=== PATIENT | female | born 2000 | race Caucasian/White ===

== ENCOUNTER 2018-08-29 16:00 | Emergency (ER) | payer MEDICAID ==
[~2018-08-29] VITALS: Ht 160 cm; Wt 85.0 kg
[2018-08-29] MEDS ORDERED: KETOROLAC 15MG/ML VIAL IM ONE (19:30)
[2018-08-29 19:51] VITALS: BP 130/85
== END 2018-08-29 19:53 | disposition home or self-care (01) ==
LOC: ER 16:08
DX: J02.9 Acute pharyngitis, unspecified (principal); Z88.1 Allergy status to other antibiotic agents
CPT/HCPCS: 81025; 87070; 87077; 87430; 96372; 99283; J1885; Z7610

== ENCOUNTER 2018-12-01 12:49 | Emergency (ER) | payer MEDICAID ==
[~2018-12-01] VITALS: Ht 162.6 cm; Wt 83.0 kg
[2018-12-01] MEDS ORDERED: SODIUM CHLORIDE 0.9% 1,000 ML IV ONE (13:24)
[2018-12-01 13:53] LABS: CLARITY URINE TURBID (CLEAR); COLOR URINE DARK YELLOW (YELLOW); KETONES URINE 3+ (NEGATIVE); LEUKOCYTE ESTERASE URINE 2+ (NEGATIVE); NITRITE URINE NEGATIVE (NEGATIVE); OCCULT BLOOD URINE NEGATIVE (NEGATIVE); PH URINE 5.5 (4.5-8.0); PROTEIN URINE 1+ (NEGATIVE); SPECIFIC GRAVITY URINE 1.031 (1.005-1.030)
[2018-12-01 14:04] LABS: BASOPHILS % 0.5 % (0.0-2.0); HEMOGLOBIN. 14.2 g/dL (12.0-16.0); LYMPHOCYTES % 11.1 % (20.0-50.0); MEAN CORPUSCULAR VOLUME 87.9 fL (81.0-99.0); MEAN PLATELET VOLUME 8.2 fl (7.4-10.4); MONOCYTES % 5.9 % (2.0-8.0); NEUTROPHILS % 82.5 % (40.0-76.0); PLATELET 235 x1000/uL (130-400); RED BLOOD CELL COUNT 4.89 mill/uL (4.2-5.4); RED CELL DISTRIBUTION WIDTH 14.3 % (11.6-14.6)
[2018-12-01 14:05] LABS: CHLORIDE 103 mEq/L (98-107)
[2018-12-01] MEDS ORDERED: CEFTRIAXONE 1 G PREMIX 50 ML IV NR (14:15)
[2018-12-01 14:16] LABS: B-HCG QUANTITATIVE < 1 mIU/mL (<3)
[2018-12-01] MEDS ORDERED: IBUPROFEN 400MG TABLET PO ONE (16:30)
[2018-12-01] MEDS ORDERED: ACETAMINOPHEN 325MG TABLET PO ONE (16:30)
[2018-12-01 18:25] VITALS: BP 121/72
[2018-12-02 09:06] LABS: *AMPHETAMINES SCREEN URINE NEGATIVE (NEGATIVE); *BARBITURATES SCREEN URINE NEGATIVE (NEGATIVE)
[2018-12-02 09:07] LABS: *BENZODIAZEPINES SCREEN URINE NEGATIVE (NEGATIVE); *COCAINE SCREEN URINE NEGATIVE (NEGATIVE); METHADONE URINE SCREEN NEGATIVE (NEGATIVE); OPIATES URINE SCREEN NEGATIVE (NEGATIVE); PHENCYCLIDINE URINE SCREEN NEGATIVE (NEGATIVE)
[2018-12-02 09:22] LABS: CANNABINOID URINE SCREEN PRESUMTIVE POSITIVE (NEGATIVE)
== END 2018-12-01 18:36 | disposition home or self-care (01) ==
LOC: ER 12:49
DX: N10 Acute pyelonephritis (principal); R59.0 Localized enlarged lymph nodes; R42 Dizziness and giddiness; R11.10 Vomiting, unspecified; M54.2 Cervicalgia; Z88.1 Allergy status to other antibiotic agents
CPT/HCPCS: 36415; 80053; 80305; 81003; 81025; 84702; 85025; 86850; 86900; 86901; 87086; 93005; 96374; 99283; J0696; J7030

== ENCOUNTER 2018-12-02 15:26 | Emergency (ER) | payer MEDICAID ==
[~2018-12-02] VITALS: Ht 165.1 cm; Wt 90.0 kg
[2018-12-02 15:35] VITALS: BP 124/74
== END 2018-12-02 18:22 | disposition left against medical advice (07) ==
LOC: ER 15:26
DX: R53.1 Weakness (principal); Z53.21 Procedure and treatment not carried out due to patient leaving prior to being seen by health care provider

== ENCOUNTER 2019-03-12 19:21 | Emergency (ER) | payer MEDICAID ==
[~2019-03-12] VITALS: Ht 160 cm; Wt 82.0 kg
[2019-03-12] MEDS ORDERED: KETOROLAC 30MG/ML VIAL IV STA (20:49)
[2019-03-12] MEDS ORDERED: SODIUM CHLORIDE 0.9% 1,000 ML IV ONE (20:49)
[2019-03-12 22:06] LABS: HEMATOCRIT. 44.9 % (36.0-48.0); MEAN CORPUSCULAR HEMOGLOBIN 29.1 pg (28.0-32.0); MEAN CORPUSCULAR VOLUME 87.5 fL (81.0-99.0); RED BLOOD CELL COUNT 5.13 mill/uL (4.2-5.4); RED CELL DISTRIBUTION WIDTH 13.8 % (11.6-14.6)
[2019-03-12 22:09] LABS: CHLORIDE 105 mEq/L (98-107)
[2019-03-12 22:13] LABS: ETHANOL BLOOD < 10 mg/dL
[2019-03-12 22:20] LABS: CLARITY URINE CLOUDY (CLEAR); COLOR URINE YELLOW (YELLOW); KETONES URINE TRACE (NEGATIVE); LEUKOCYTE ESTERASE URINE TRACE (NEGATIVE); NITRITE URINE NEGATIVE (NEGATIVE); OCCULT BLOOD URINE NEGATIVE (NEGATIVE); PROTEIN URINE TRACE (NEGATIVE); SPECIFIC GRAVITY URINE 1.032 (1.005-1.030)
[2019-03-12 22:27] LABS: MEAN PLATELET VOLUME 9.2 fl (7.4-10.4); PLATELET 405 x1000/uL (130-400)
[2019-03-12 22:28] LABS: PLATELET ESTIMATE INCREASED
[2019-03-12 22:41] LABS: *BENZODIAZEPINES SCREEN URINE NEGATIVE (NEGATIVE); METHADONE URINE SCREEN NEGATIVE (NEGATIVE)
[2019-03-12 22:42] LABS: *AMPHETAMINES SCREEN URINE NEGATIVE (NEGATIVE); *BARBITURATES SCREEN URINE NEGATIVE (NEGATIVE); PHENCYCLIDINE URINE SCREEN NEGATIVE (NEGATIVE)
[2019-03-12 22:43] LABS: OPIATES URINE SCREEN NEGATIVE (NEGATIVE)
[2019-03-12 22:51] LABS: *COCAINE SCREEN URINE NEGATIVE (NEGATIVE)
[2019-03-12 22:52] LABS: CANNABINOID URINE SCREEN PRESUMTIVE POSITIVE (NEGATIVE)
[2019-03-12 23:25] VITALS: BP 118/87
== END 2019-03-12 23:58 | disposition home or self-care (01) ==
LOC: ER 19:21
DX: S00.83XA Contusion of other part of head, initial encounter (principal); Y04.8XXA Assault by other bodily force, initial encounter; W01.198A Fall on same level from slipping, tripping and stumbling with subsequent striking against other object, initial encounter; Y93.01 Activity, walking, marching and hiking; Y92.480 Sidewalk as the place of occurrence of the external cause
CPT/HCPCS: 36415; 70450; 70486; 70490; 80053; 80305; 80320; 81003; 81025; 85025; 93005; 99284; J7030; G0480

== ENCOUNTER 2019-04-20 22:42 | Emergency (ER) | payer MEDICAID ==
[~2019-04-20] VITALS: Ht 160 cm; Wt 84.0 kg
[2019-04-20 23:10] VITALS: BP 123/69
[2019-04-21] MEDS ORDERED: BACITRACIN ZINC OINT UDPKT TOP ONE (00:45)
[2019-04-21] MEDS ORDERED: LIDOCAINE HCL/PF 1% 10 MG/ML 5ML VIAL IJ ONE (00:45)
== END 2019-04-21 02:39 | disposition home or self-care (01) ==
LOC: ER 22:42
DX: S01.81XA Laceration without foreign body of other part of head, initial encounter (principal); W01.0XXA Fall on same level from slipping, tripping and stumbling without subsequent striking against object, initial encounter; Y93.89 Activity, other specified; Y92.89 Other specified places as the place of occurrence of the external cause; Y99.8 Other external cause status; F12.10 Cannabis abuse, uncomplicated; Z88.1 Allergy status to other antibiotic agents
CPT/HCPCS: 12011; 99283; J3490; Z7610

== ENCOUNTER 2019-05-12 22:42 | Emergency (ER) | payer OTHER, MEDICAID ==
[~2019-05-12] VITALS: Ht 160 cm; Wt 84.0 kg
[2019-05-13] MEDS ORDERED: ONDANSETRON HCL 4MG/2ML INJ IV STA (03:07)
[2019-05-13] MEDS ORDERED: SODIUM CHLORIDE 0.9% 1,000 ML IV ONE (03:07)
[2019-05-13 03:30] LABS: BASOPHILS % 0.4 % (0.0-2.0); EOSINOPHILS % 0.2 % (0.0-5.0); HEMATOCRIT. 41.7 % (36.0-48.0); LYMPHOCYTES % 12.6 % (20.0-50.0); MEAN CORPUSCULAR HEMOGLOBIN 28.7 pg (28.0-32.0); MEAN CORPUSCULAR VOLUME 85.8 fL (81.0-99.0); MONOCYTES % 4.4 % (2.0-8.0); NEUTROPHILS % 82.4 % (40.0-76.0); PLATELET 308 x1000/uL (130-400); RED BLOOD CELL COUNT 4.86 mill/uL (4.2-5.4); RED CELL DISTRIBUTION WIDTH 14.3 % (11.6-14.6)
[2019-05-13 03:33] LABS: CHLORIDE 107 mEq/L (98-107)
[2019-05-13] MEDS ORDERED: MAGNESIUM/ALUMINUM HYDROXIDE/SIMETHICONE 30ML UDC PO ONE (03:45)
[2019-05-13 04:05] LABS: HCG SCREEN POSITIVE
[2019-05-13 05:13] LABS: CLARITY URINE TURBID (CLEAR); COLOR URINE YELLOW (YELLOW); KETONES URINE 4+ (NEGATIVE); LEUKOCYTE ESTERASE URINE TRACE (NEGATIVE); NITRITE URINE NEGATIVE (NEGATIVE); OCCULT BLOOD URINE NEGATIVE (NEGATIVE); PH URINE 5.5 (4.5-8.0); PROTEIN URINE TRACE (NEGATIVE); SPECIFIC GRAVITY URINE 1.032 (1.005-1.030); UROBILINOGEN URINE 0.2 E.U./dL (0.2-1.0)
[2019-05-13 06:53] VITALS: BP 111/54
== END 2019-05-13 06:56 | disposition home or self-care (01) ==
LOC: ER 22:42
DX: O23.41 Unspecified infection of urinary tract in pregnancy, first trimester (principal); O20.0 Threatened abortion; O99.321 Drug use complicating pregnancy, first trimester; F12.90 Cannabis use, unspecified, uncomplicated; O26.891 Other specified pregnancy related conditions, first trimester; R19.7 Diarrhea, unspecified; R68.83 Chills (without fever); R05 Cough; Z3A.01 Less than 8 weeks gestation of pregnancy
CPT/HCPCS: 36415; 76801; 76817; 80053; 81003; 83690; 84703; 85025; 96361; 96374; 99284; J2405; J7030

== ENCOUNTER 2019-06-16 11:58 | Emergency (ER) | payer MEDICAID ==
[~2019-06-16] VITALS: Ht 162.6 cm; Wt 65.0 kg
[2019-06-16] MEDS ORDERED: SODIUM CHLORIDE 0.9% 1,000 ML IV ONE (20:05)
[2019-06-16] MEDS ORDERED: ONDANSETRON HCL 4MG/2ML INJ IV ONE (20:15)
[2019-06-16 20:22] LABS: CLARITY URINE CLOUDY (CLEAR); COLOR URINE DARK YELLOW (YELLOW); KETONES URINE 4+ (NEGATIVE); LEUKOCYTE ESTERASE URINE 1+ (NEGATIVE); NITRITE URINE NEGATIVE (NEGATIVE); OCCULT BLOOD URINE NEGATIVE (NEGATIVE); PH URINE 5.5 (4.5-8.0); PROTEIN URINE 1+ (NEGATIVE); SPECIFIC GRAVITY URINE 1.033 (1.005-1.030)
[2019-06-16 20:40] LABS: CHLORIDE 105 mEq/L (98-107)
[2019-06-16 20:41] LABS: BASOPHILS % 0.6 % (0.0-2.0); EOSINOPHILS % 0.7 % (0.0-5.0); HEMATOCRIT. 40.3 % (36.0-48.0); HEMOGLOBIN. 13.7 g/dL (12.0-16.0); LYMPHOCYTES % 18.3 % (20.0-50.0); MEAN CORPUSCULAR VOLUME 85.3 fL (81.0-99.0); MEAN PLATELET VOLUME 8.4 fl (7.4-10.4); MONOCYTES % 6.6 % (2.0-8.0); NEUTROPHILS % 73.8 % (40.0-76.0); PLATELET 296 x1000/uL (130-400); RED BLOOD CELL COUNT 4.72 mill/uL (4.2-5.4); RED CELL DISTRIBUTION WIDTH 14.6 % (11.6-14.6)
[2019-06-16 21:03] LABS: B-HCG QUANTITATIVE 103660 mIU/mL (<3)
[2019-06-16 23:00] VITALS: BP 118/76
== END 2019-06-16 22:32 | disposition home or self-care (01) ==
LOC: ER 12:06
DX: O21.0 Mild hyperemesis gravidarum (principal); O99.321 Drug use complicating pregnancy, first trimester; Z88.1 Allergy status to other antibiotic agents; Z3A.11 11 weeks gestation of pregnancy
CPT/HCPCS: 36415; 76801; 76817; 80053; 81003; 81025; 84702; 85025; 86850; 86900; 86901; 96361; 96374; 99284; J2405; J7030; Z7610